=== PATIENT | female | born 1955 ===

== ENCOUNTER 2020-09-18 10:51 | Outpatient (NON) | payer MEDICARE, SELFPAY | END 2020-09-18 10:52 | disposition home or self-care (01) | PROVIDERS: PCP Nurse Practitioner Family; Visit Provider Nurse Practitioner | DX: L02.91 Cutaneous abscess, unspecified (principal) | CPT/HCPCS: 87070; 87075; 87147; 87181; 87186; 87205 ==

== ENCOUNTER 2021-05-07 15:39 | Emergency (ER) | payer MEDICARE, SELFPAY ==
[2021-05-07 15:40] VITALS: BP 131/78; PULSE 72; RESP 20; TEMP 37; O2SAT 98
--- NOTE | 2021-05-07 16:35 | ED.WOUNDLAC ---
HPI - Wound/Laceration General Chief Complaint: Wound/Laceration Stated Complaint: laceration left hand Time Seen by Provider: 05/07/21 16:35 Source: patient and family Mode of arrival: ambulatory Limitations: no limitations History of Present Illness HPI narrative: 66-year-old right-handed woman comes in today complaining of a laceration of her left hand that occurred while she was opening a plastic package with scissors. 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 She states that she has no numbness or tingling as normal range of motion of her fingers. Her tetanus is up-to-date. Onset (ago): minute(s) (30) Extremity Location: Left: hand Place: work Patient tetanus UTD: Yes Context: accidental Associated symptoms: pain Treatments prior to arrival: bandage Related Data Home Medications Medication Instructions Recorded Confirmed alprazolam 0.25 mg tablet 0.25 mg PO BID 09/17/20 amoxicillin PO 09/17/20 celecoxib 100 mg capsule 100 mg PO DAILY cap 09/17/20 Allergies Allergy/AdvReac Type Severity Reaction Status Date / Time No Known Allergies Allergy Unknown Verified 04/29/21 09:14 Review of Systems Constitutional: Constitutional: Denies chills and Denies fever(s) Respiratory: Respiratory: Denies cough and Denies dyspnea Gastrointestinal: Gastrointestinal: Denies abdominal pain, Denies nausea and Denies vomiting Musculoskeletal: Musculoskeletal: Denies arthralgias and Denies joint swelling Integumentary/Breasts: Skin/Breast: Denies pruritus, Denies erythema and Denies rash Neurologic: Denies focal weakness and Denies numbness Hematologic/Lymphatic: Hematologic/Lymphatic: Denies easy bleeding and Denies easy bruising PMFSH Past Medical History Medical History Acute arthritis History of stomach ulcers Surgical History Surgical History History of surgery on arm Family History Family History Father Family history of lung cancer Mother Family history of lung cancer Sibling Melanoma Social History Social History Smoking status: Never smoker Alcohol intake: current Substance use: never Exam Const: General: healthy appearing, no acute distress and alert Orientation/consciousness: patient oriented x3 Limitations: no limitations Skin: General skin exam: normal color, no jaundice and no pallor Rashes: no rashes Other: 1.5 cm laceration over the radial aspect of the left 2nd MCP. Neuro: General: patient oriented x3, moves all extremities, no focal motor deficits and CN's II-XI intact bilaterally Speech: normal speech Gait exam (Neuro): Normal gait present Extrem: General: normal to inspection and no clubbing, cyanosis or edema Psych: Appearance: grossly normal Mental Status: mental status grossly normal Affect: normal affect Procedures Laceration Laceration 1: Date: 05/07/21 Time: 16:45 Site: hand Side (If applicable): left Size (cm): 1.5 Description: linear Depth: simple, single layer Local Anesthetic: lidocaine 1% Amount of anesthesia used (mL): 2 Pre-repair: wound explored and irrigated extensively ====== Skin Level ====== Skin layer closed with: nylon Size (cm): 5-0 Number of sutures: 5 Technique: simple, interrupted ====== Subcutaneous Layer ====== ====== Muscle Layer ====== ====== Tendon Layer ====== Discharge Plan Discharge Clinical Impression: Hand laceration Qualifiers: Encounter type: initial encounter Foreign body presence: without foreign body Laterality: left Qualified Code(s): S61.412A - Laceration without foreign body of left hand, initial encounter Patient Disposition: Home, Self-Care Condition: Stable Inst
[2021-05-07 17:00] VITALS: BP 131/78; PULSE 72; RESP 20; TEMP 37; O2SAT 98
== END 2021-05-07 17:15 | disposition home or self-care (01) ==
PROVIDERS: Emergency Provider Emergency Medicine; PCP Nurse Practitioner Family
DX: S61.412A Laceration without foreign body of left hand, initial encounter (principal); W26.8XXA Contact with other sharp object(s), not elsewhere classified, initial encounter
CPT/HCPCS: 12001; 99282

== ENCOUNTER 2022-10-27 09:33 | Outpatient (CLI) | payer MEDICARE, SELFPAY ==
--- NOTE | ~2022-10-27 | DEXA_ITS ---
Bone Density Report Name: BELTRAN CLAIRE Age: 67 Sex: Female Ethnicity: White Date of : 1955 Indication: postmenopausal; screening for osteoporosis; Referring Provider: REMI, CRISTOBAL Jeffrey Study: Bone densitometry was performed. Exam Date: October 27, 2022 Accession number: [id number] Bone Density: Region BMD T-score Z-score Classification AP Spine(L1-L4) 1.186 1.3 3.3 Normal Femoral Neck (Left) 0.540 -2.8 -1.0 Osteoporosis Total Hip (Left) 0.615 -2.7 -1.2 Osteoporosis Femoral Neck (Right) 0.551 -2.7 -0.9 Osteoporosis Total Hip (Right) 0.583 -2.9 -1.5 Osteoporosis Femoral Neck Mean 0.546 -2.7 -1.0 Osteoporosis Total Hip Mean 0.599 -2.8 -1.3 Osteoporosis World Health Organization criteria for BMD impression classify patients as: Normal (T-score at or above -1.0), Osteopenia (T-score between -1.0 and -2.5), or Osteoporosis (T-score at or below -2.5). Clinical Information Provided by Patient: Has used the following medications: Vitamin D, Calcium Patient maximum height was 60 No regular weight bearing exercise Does not regularly consume dairy products Drinks caffeinated beverages Onset of menses at age 11 Number of children 2 Impression: The patient has osteoporosis, based on the Right Total Hip T-score. Discussion: INCREASED RISK OF FRACTURE. BONE DENSITY IS UNDESIRABLY LOW AT ONE OR MORE SKELETAL SITES, CONSISTENT WITH POSTMENOPAUSAL OSTEOPOROSIS. This patient's lowest T-score meets the World Health Organization's (WHO) criteria for osteoporosis at one or more sites (T-score -2.5 or below). In untreated patients, the risk of osteoporotic fracture increases approximately two-fold for each 1.0 SD decrease in T-score. Low bone density is not the only risk factor for fracture; also consider factors such as patient's age, frailty or poor health, risk of falling, risk of injury, previous osteoporotic fracture, family history of osteoporosis, cigarette smoking, low body weight, etc. Not everyone with low bone mineral density has osteoporosis; osteomalacia and other metabolic bone disorders should also be considered. Patients who have osteoporosis should be evaluated for specific diseases and conditions (secondary causes) that may cause or contribute to bone loss. The [place] [employer]ocr[employer] (AACE) and National Osteoporosis Foundation (NOF) recommend pharmacologic intervention for all postmenopausal women whose T-score is in this range. The patient should follow a healthful lifestyle (good nutrition with adequate calcium and vitamin D, and appropriate weight-bearing exercise). Follow-Up: Consider a repeat BMD and Vertebral Fracture Assessment (VFA) exam in 2 years or sooner if medically necessary, to reassess this patient's status. Reported by: Dr. Manish Flores on 10/27/2022 10:10:00 AM. Reviewed, dictated and finalized at location A. LUIS FERNANDO
== END 2022-10-27 09:34 | disposition home or self-care (01) ==
LOC: CHSIMG 09:39
PROVIDERS: PCP Family Medicine; Visit Provider Family Medicine
DX: Z78.0 Asymptomatic menopausal state (principal); M81.0 Age-related osteoporosis without current pathological fracture
CPT/HCPCS: 77080

== ENCOUNTER 2023-03-20 01:38 | Day surgery (SDC) | payer MEDICARE, SELFPAY ==
[2023-03-08 13:39] VITALS: BMI 28.4
--- NOTE | 2023-03-17 10:35 | SUR.PREOP ---
Patient called regarding upcoming procedure. Reviewed preop instructions, appointment times, and procedure prep.
[2023-03-20 09:00] VITALS: BP 135/76; PULSE 78; RESP 20; TEMP 36.2; O2SAT 98; BMI 29.0
[2023-03-20] MEDS: LACTATED RINGERS 1,000 ML 150 ML IV CONT (09:19)
--- NOTE | 2023-03-20 09:21 | P.PNAN_ITS ---
Anes - Initial Pre Proc Eval Procedure: Operation Date: 03/20/23 10:30 Proposed Procedures p Screening Colonoscopy - Jad Garrison MD Date/Time: 03/20/23 09:21 Surgeon: Jad Garrison MD Pre Op Diagnosis: neoplasm screening Patient Data Age: 68 Gender: F Height: 1.52 m Weight: 67.4 kg Last Vital Signs Temp 97.1 F L 03/20/23 09:00 Pulse 78 03/20/23 09:00 Resp 20 03/20/23 09:00 BP 135/76 03/20/23 09:00 Pulse Ox 98 03/20/23 09:00 O2 Del Method Room Air 03/20/23 09:00 Allergies Allergy/AdvReac Type Severity Reaction Status Date / Time No Known Allergies Allergy Unknown Verified 03/20/23 08:59 Home Medications Medication Instructions Recorded Confirmed Type alprazolam 0.25 mg tablet 0.25 mg PO BID 09/17/20 03/20/23 History celecoxib 100 mg capsule 100 mg PO DAILY 09/17/20 03/20/23 History alendronate 70 mg tablet 70 mg PO WEEKLY 03/08/23 03/20/23 History rosuvastatin 10 mg tablet 10 mg PO DAILY 03/08/23 03/20/23 History sertraline 25 mg tablet 25 mg PO DAILY 03/08/23 03/20/23 History Patient hx anesthesia problems: none Family hx anesthesia problems: none Results Review: All pre-operative results and documents have been reviewed as part of the pre- operative evaluation. [facility] Past Medical History Medical History Acute arthritis History of stomach ulcers Surgical History Surgical History History of surgery on arm Family History Family History Father Family history of lung cancer Mother Family history of lung cancer Sibling Melanoma Social History Social History Smoking status: Never smoker Alcohol intake: current Alcohol use details: seldom Substance use: never Substance use type: does not use Living arrangements: alone Spiritual care concerns: No Anes - Eval Final PreProcedure Day of Procedure 03/20/23 09:21 Patient weight: obese Heart: regular rate and rhythm Lungs: clear to auscultation Airway: Mallampati scale class II Neurological: alert and oriented Last oral intake: >/= 8 hours ASA classification: II Emergent: no Anesthetic plan: proceed Anesthesia type and monitoring: general GIVS and standard monitoring Results Review: All pre-operative results and documents have been reviewed as part of the pre- operative evaluation. Informed Consent: The patient's anesthetic plan and its attendant risks and benefits were discussed with the patient/family/POA. Questions were solicited and answers provided to the satisfaction of the patient/family/POA.
--- NOTE | 2023-03-20 09:27 | PM.HPGS ---
History of Present Illness History of Present Illness Consent: Risks, benefits, and alternatives have been discussed and questions answered. Patient agrees to proceed with procedure. Chief complaint: neoplasm screening Narrative: Loretta Bobo is a 68 year old female here for first screening colonoscopy Review of Systems Constitutional: Constitutional: Denies headache(s) and Denies weakness Eyes: Eyes: Denies blurry vision ENT: Reports Normal hearing present, Denies headache(s) and Denies neck pain Cardiovascular: Cardiovascular: Denies chest pain and Denies dyspnea Respiratory: Respiratory: Denies dyspnea Gastrointestinal: Gastrointestinal: Reports no additional gastrointestinal complaints Genitourinary: Genitourinary: Denies dysuria Musculoskeletal: Musculoskeletal: Denies neck pain Integumentary/Breasts: Skin/Breast: Denies dry skin Neurologic: Reports Normal hearing present, Denies headache(s) and Denies weakness Psychiatric: Psychiatric: Denies anxiety Endocrine: Endocrine: Denies change in body appearance Hematologic/Lymphatic: Hematologic/Lymphatic: Denies easy bleeding Allergic/Immunologic: Allergic/Immunologic: Denies urticaria [facility] Past Medical History Medical History (Updated 03/20/23 @ 09:28 by Jad Garrison MD) Acute arthritis Colon cancer screening History of stomach ulcers Surgical History Surgical History History of surgery on arm Family History Family History Father Family history of lung cancer Mother Family history of lung cancer Sibling Melanoma Social History Social History Smoking status: Never smoker Alcohol intake: current Alcohol use details: seldom Substance use: never Substance use type: does not use Living arrangements: alone Spiritual care concerns: No Meds Home Medications and Allergies Home Medications Medication Instructions Recorded Confirmed Type alprazolam 0.25 mg tablet 0.25 mg PO BID 09/17/20 03/20/23 History celecoxib 100 mg capsule 100 mg PO DAILY 09/17/20 03/20/23 History alendronate 70 mg tablet 70 mg PO WEEKLY 03/08/23 03/20/23 History rosuvastatin 10 mg tablet 10 mg PO DAILY 03/08/23 03/20/23 History sertraline 25 mg tablet 25 mg PO DAILY 03/08/23 03/20/23 History Allergies Allergy/AdvReac Type Severity Reaction Status Date / Time No Known Allergies Allergy Unknown Verified 03/20/23 08:59 Vital Signs Vital Signs - 24 hr 03/20/23 09:00 Temperature 97.1 F L Pulse Rate 78 Respiratory Rate 20 Blood Pressure 135/76 Pulse Oximetry 98 Oxygen Delivery Room Air Exam Const: General: comfortable and no acute distress HENMT: Face/Nose/Sinus: Normal nares present Eyes: General: appearance normal, both eyes and all related structures Neck: Neck: no JVD Resp: Auscultation: clear to auscultation bilaterally Cardio: Rate: regular rate Rhythm: regular rhythm GI: Inspection: non-distended GI Palp: Yes Soft to palpation Skin: General skin exam: normal color Neuro: General: gait normal Speech: normal speech Extrem: General: normal to inspection Psych: Mental Status: mental status grossly normal Assessment and Plan Assessment and plan (1) Colon cancer screening: Code(s): Z12.11 - Encounter for screening for malignant neoplasm of colon Status: Acute Assessment and Plan: colonoscopy
[2023-03-20 09:48] VITALS: BP 114/63; PULSE 81; RESP 24; O2SAT 98
[2023-03-20 09:58] VITALS: BP 120/78; PULSE 68; RESP 18; O2SAT 100
[2023-03-20 10:08] VITALS: BP 126/70; PULSE 69; RESP 18; O2SAT 100
== END 2023-03-20 10:15 | disposition home or self-care (01) ==
PROVIDERS: PCP Family Medicine; Visit Provider Internal Medicine Gastroenterology
PROC: 0DJD8ZZ Inspection of Lower Intestinal Tract, Via Natural or Artificial Opening Endoscopic (ICD-10-PCS; CPT 45378; principal; 2023-03-20 10:30)
DX: Z12.11 Encounter for screening for malignant neoplasm of colon (principal); K57.30 Diverticulosis of large intestine without perforation or abscess without bleeding; K64.8 Other hemorrhoids; E66.9 Obesity, unspecified; Z68.29 Body mass index [BMI] 29.0-29.9, adult
CPT/HCPCS: G0121; J2704; J7120

== ENCOUNTER 2023-05-04 17:11 | Outpatient (NON) | payer MEDICARE, SELFPAY | END 2023-05-04 17:12 | disposition home or self-care (01) | LOC: ANHLAB 17:13 | PROVIDERS: PCP Family Medicine; Visit Provider Nurse Practitioner | DX: D48.5 Neoplasm of uncertain behavior of skin (principal) | CPT/HCPCS: 88305 ==

== ENCOUNTER 2025-01-07 12:38 | Outpatient (CLI) | payer MEDICARE, SELFPAY ==
--- NOTE | ~2025-01-07 | DEXA_ITS ---
Bone Density Report Name: BELTRAN CLAIRE Age: 69 Sex: Female Ethnicity: White Date of : 1955 Indication: postmenopausal osteoporosis; monitoring treatment; secondary osteoporosis; Referring Provider: REMI, CRISTOBAL Jeffrey Study: Bone densitometry was performed. Exam Date: January 07, 2025 Accession number: [id number] Bone Density: Region BMD T-score Z-score Classification AP Spine(L1-L4) 1.336 2.6 4.8 Normal Femoral Neck (Left) 0.589 -2.3 -0.4 Osteopenia Total Hip (Left) 0.734 -1.7 -0.1 Osteopenia Femoral Neck (Right) 0.723 -1.1 0.8 Osteopenia Total Hip (Right) 0.772 -1.4 0.2 Osteopenia Femoral Neck Mean 0.656 -1.7 0.2 Osteopenia Total Hip Mean 0.753 -1.5 0.1 Osteopenia World Health Organization criteria for BMD impression classify patients as: Normal (T-score at or above -1.0), Osteopenia (T-score between -1.0 and -2.5), or Osteoporosis (T-score at or below -2.5). Previous Exams: Region Exam Age BMD T-score BMD Change BMD Change Date g/cm2 vs Baseline vs Previous AP Spine (L1-L4) 01/07/2025 69 1.336 2.6 0.150 (12.7%)* 0.150 (12.7%)* 10/27/2022 67 1.186 1.3 Total Hip(Left) 01/07/2025 69 0.734 -1.7 0.119 (19.3%)* 0.119 (19.3%)* 10/27/2022 67 0.615 -2.7 Total Hip(Right) 01/07/2025 69 0.772 -1.4 0.189 (32.4%)* 0.189 (32.4%)* 10/27/2022 67 0.583 -2.9 *Denotes significance at 95% confidence level, LSC for AP Spine = 0.022 g/cm2, LSC for Total Hip = 0.027 g/cm2 Clinical Information Provided by Patient: Has secondary osteoporosis Is being treated for osteoporosis Has used the following medications: Fosamax (i.e. alendronate), Vitamin D Patient maximum height was 6.0 Menopause Age: 48 No regular weight bearing exercise Does not regularly consume dairy products Drinks caffeinated beverages Onset of menses at age 13 Number of children 2 Impression: The patient has low bone mass, based on the Left Femoral Neck T-score. No significant bone loss was observed. Discussion: PATIENT UNDER TREATMENT WITH NO SIGNIFICANT BMD LOSS SINCE LAST EXAM. In an untreated patient, BMD typically declines with age. A lack of decline or gain is usually a sign that treatment is efficacious and fracture risk is reduced. It is important to ask patients whether they are taking their medications and to encourage continued and appropriate compliance with their osteoporosis therapies to reduce fracture risk. It is also important to review their risk factors and encourage appropriate calcium and vitamin D intakes, exercise, fall prevention and other lifestyle measures. Follow-Up: Consider a repeat BMD and Vertebral Fracture Assessment (VFA) exam in 2 years or sooner if medically necessary, to reassess this patient's status. Reported by: UMU on 01/07/2025 1:20:00 PM. Reviewed, dictated and finalized at location A.
--- OUTSIDE RECORDS SUMMARY | 2025-01-07 12:44 | XMS_ITS | Clinical Summary ---
Author Organization [address] Address [address] [place] [id number] Care Team Providers [facility] [employer] Name Role Phone Gabo Donis MD Primary Care Provider [phone] Melanie Manuel MD Unavailable [phone] Allergies No known active allergies Medications sertraline (ZOLOFT) 25 mg tabletIndicati ons:Generalize d Anxiety Disorder TAKE 1 TABLET (25 MG TOTAL) BY MOUTH DAILY. 90 tablet 3 02/20/20 24 025 Active alendronate (FOSAMAX) 70 mg tablet TAKE 1 TABLET BY MOUTH EVERY 7 DAYS IN THE MORNING WITH A FULL GLASS OF WATER, ON AN EMPTY STOMACH, AND DO NOT TAKE ANYTHING ELSE BY MOUTH OR LIE DOWN FOR THE NEXT 30 MIN. 12 tablet 3 11/19/19 25 Active rosuvastatin (CRESTOR) 10 mg tablet TAKE 1 TABLET BY MOUTH EVERY DAY 90 tablet 1 12/26/19 25 Active ALPRAZolam (XANAX) 0.5 mg tabletIndicati ons:anxiety Take 1 tablet (0.5 mg total) by mouth 3 (three) times a day as needed for anxiety 30 tablet 1 01/04/20 25 025 Active rosuvastatin (CRESTOR) 10 mg tablet TAKE 1 TABLET BY MOUTH EVERY DAY 90 tablet 1 07/01/19 25 025 Discontinued ALPRAZolam (XANAX) 0.5 mg tabletIndicati ons:anxiety Take 1 tablet (0.5 mg total) by mouth 3 (three) times a day as needed for anxiety 30 tablet 1 11/09/19 25 025 Discontinued(Re order) Active Problems Problem Noted Date Diagnosed Date Class 1 obesity due to exces s calories without serious comorbidity with body mass index (BMI) of 30.0 to 30.9 in adult 07/11/2024 Assessment & Plan (07/11/2024 10:25 AM 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 Mixed hyperlipidemia 07/03/2023 Vitamin D deficiency 07/03/2023 Traumatic closed displaced f racture of base of metacarpal bone of right thumb 06/29/2023 Age-related osteoporosis wit hout current pathological fracture 01/14/2023 Encounter for annual wellnes s visit (AWV) in Medicare patient 12/27/2022 Assessment & Plan (01/05/2024 8:52 AM CDT): A(n) yearly Medicare Annual Wellness Visit has been performed today. Loretta Bobo is not up to date on screening tests. She is in need of hepatitis B screening . She is up to date on needed preventative vaccinations. We discussed healthy lifestyle habits, educational material has been given. Medications reviewed, changes documented as per the medical record and discussed with patient along with risks vs benefits. Specific topics reviewed: drugs, ETOH, and tobacco, importance of regular dental care, importance of regular exercise, importance of varied diet, limit TV, media violence, minimize junk food, and seat belts. Return in 6 months Assessment & Plan (12/27/2022 1:07 PM CDT): A(n) yearly Medicare Annual Wellness Visit has been performed today. Loretta Bobo is not up to date on screening tests. She is in need of DEXA, Breast cancer screening, and Colon cancer screening. She is not up to date on needed preventative vaccinations; She is in need of Zoster and Covid-19 (booster). We discussed healthy lifestyle habits, educational material has been given. Medications reviewed, changes documented as per the medical record and discussed with patient along with risks vs benefits. Return in 6 months Immunization due 08/12/2021 Assessment & Plan (08/12/2021 5:41 PM CDT): Immunizations that are due were reviewed TDAP,Shingles shot, Blister of nose with infection 06/23/2021 Laceration of finger without foreign body, initial encounter 05/15/2021 Overview (05/15/2021): Sutures in place, no problems noted at this time. Stitches to come out in 2 weeks. Continue to monitor wound for signs of infection. Continue with wound care. Note needs TDAP As soon as possible. 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 Keep wound dry, as much as possible. Fatigue associated with anemia 05/15/2021 Overview (05/15/2021): Note history of anemia, Lab to be done today, CBC, CMP, TSH, B12, Vit D, Encouraged balanced diet. Adequate fluids. Adequate sleep of good quality. Chronic ulcer of gastric fundus 05/15/2021 Overview (05/15/2021): Continue to monitor gastric ulcer. Contnue with medication as ordered. Eat balanced diet, avoid foods that cause her gastric distress Lab today.. Acute bilateral knee pain 05/15/2021 Overview (05/15/2021): Xray of bilateral knees today Celebrex 100mg on bid with food. Talked about getting injections into knees. Also talked about using topical pain meds OTC Continue with exercises to keep quad muscles stronger. Watch posture with knees and thing to help her keep legs in good alignment. Assessment & Plan (08/12/2021 5:07 PM CDT): Doing well with Celebrex 100mg bid with food. Continue with knee exercises , not they have helped with legs and knees feeling better. 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 Anxiety 05/15/2021 Overview (05/15/2021): Zoloft 25mg one daily [o Xanax 0.5 mg one bid PRN Work on stress. Establish some me time. Possible counseling if needed. Assessment & Plan (08/12/2021 5:04 PM CDT): Continue with Xanax 0.5mg bid PRN Cut back on working hours to 5 days a week, Take a vacation. Start an exercise program and weight loss. Encounters Date Type Department Care Team Description 12/02/2024 Telephone [facility] Primary Care at [address] [id number] Gabo Donis MD Medical Question/Miscellaneous from Last 3 Months Immunizations Immunization Administration Dates Next Due Influenza, Quadrivalent, Hig h Dose, Preservative Free, Intrr 03/14/2022,05/13/2021 Influenza, Trivalent, High D ose, Split, Preservative Free, Intramuscular 07/11/2024 Influenza, Unspecified 05/15/2023(Deferr ed: Patient Refused),05/15/2022(Deferred: Patient Refused),03/29/2020(Deferred: Patient Refused) Pneumococcal Conjugate Pcv20 06/28/2022 Tdap 05/23/2021 Surgical History Surgery Date Site/Laterality Comments ARM SURGERY LAPAROSCOPIC GASTROTOMY W/ REPAIR OF ULCER Medical History Medical History Date Comments Anxiety Hyperlipidemia Depression Age-related osteoporosis without current patholo gical fracture 01/14/2023 Family History Medical History Relation Name Comments Lung cancer Father Lung cancer Mother Relation Name Status Comments Brother Alive Father Mother Sister 1 Alive Sister 2 Alive Sister 3 Alive Sister 4 Alive Social History Tobacco Use Types Packs/Day Years Used Date Smoking Tobacco: Never Smokeless Tobacco: Never AUDIT-C Answer Date Recorded Q1: How often do you have a drink containing alc ohol? Monthly or less 12/27/2022 Q2: How many drinks containi ng alcohol do you have on a typical day when you are drinking? 1 or 2 12/27/2022 Q3: How often do you have si x or more drinks on one occasion? 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 Not on file Not on file Obstetrics History Last Filed Vital Signs Vital Sign Reading Time Taken Comments Blood Pressure 130/84 07/11/2024 10:04 AM BLOOD BANK BOOKING CLERK Pulse 78 07/11/2024 10:04 AM BLOOD BANK BOOKING CLERK Temperature 36.1 C (96.9 F) 07/11/2024 10:04 AM BLOOD BANK BOOKING CLERK Respiratory Rate 16 07/11/2024 10:04 AM BLOOD BANK BOOKING CLERK Oxygen Saturation 98% 07/11/2024 10:04 AM BLOOD BANK BOOKING CLERK Inhaled Oxygen Concentration - - Weight 71.2 kg (157 lb) 07/11/2024 10:04 AM BLOOD BANK BOOKING CLERK Height 152.4 cm (5') 07/11/2024 10:04 AM BLOOD BANK BOOKING CLERK Body Mass Index 30.66 07/11/2024 10:04 AM BLOOD BANK BOOKING CLERK Plan of Treatment Health Maintenance Due Date Last Done Comments Hepatitis B Screening 1973 Zoster Vaccine (1 of 2) 2003 Covid-19 Vaccine ( season) 2024 01/02/2021, 12/12/2020 Osteoporosis Screening-Bone Density Scan 10/27/2024 10/27/2022 Fall Risk Assessment 01/04/2025 01/05/2024, 07/03/2023, 12/27/2022, Additional history exists Well Visit 65+ 01/04/2025 01/05/2024, 12/27/2022 Influenza Vaccine (#1) 2025 , 03/14/2022, 05/13/2021 Breast Cancer Screening-Mammogram 04/17/2025 Postponed from 1955 (Patient declined, but will receive in the future) Depression Screening 07/11/2025 07/11/2024, 01/05/2024, 07/03/2023, Additional history exists DTaP/Tdap/Td Vaccine (2 - Td or Tdap) 05/23/2031 05/23/2021 Colon Cancer Screening-Colonoscopy 03/20/2033 03/20/2023 Hepatitis C Screening Completed 08/20/2021 Pneumococcal vaccine 65+ Completed 06/28/2022 Procedures Procedure Name Priority Date/Time Associated Diagnosis Comments THYROID FUNCTION CASCADE Routine 01/03/2025 8:46 AM CDT Anxiety VITAMIN D 25 HYDROXY Routine 01/03/2025 8:46 AM CDT Vitamin D deficiency Age-related osteoporosis without current pathological fracture LIPID PANEL Routine 01/03/2025 8:46 AM CDT Mixed hyperlipidemia COMPREHENSIVE METABOLIC PANEL Routine 01/03/2025 8:46 AM CDT Mixed hyperlipidemia CBC WITH AUTO DIFFERENTIAL Routine 01/03/2025 8:46 AM CDT Mixed hyperlipidemia HM COLONOSCOPY Routine 03/20/2023 HM DEXA SCAN Routine 10/27/2022 HEPATITIS C ANTIBODY Routine 08/20/2021 10:40 AM CDT Encounter for hepatitis C screening test for low risk patient from Last 3 Months or Most Recently Relevant to Health Maintenance Results * Thyroid Function [place] (01/03/2025 8:46 AM CDT) TSH 1.52 0.40 - 4.50 mIU/L [facility] Blood 01/03/2025 8:46 AM CDT 01/04/2025 4:23 AM CDT Narrative [facility] - 01/04/2025 8:33 AM CDT FASTING:YES FASTING: YES us Gabo Donis MD LAB BLOOD ORDERABLES Final Result [facility] [address] [place] [address] * (ABNORMAL) CBC with auto differential (01/03/2025 8:46 AM CDT) WBC 7.1 3.8 - 10.8 Thousand/u L [facility] RBC, POC 5.18(H) 3.80 - 5.10 Million/uL [facility] Hgb 14.5 11.7 - 15.5 g/dL [facility] Hct 45.1(H) 35.0 - 45.0 % [facility] MCV 87.1 80.0 - 100.0 fL [facility] MCH 28.0 27.0 - 33.0 pg [facility] MCHC 32.2 32.0 - 36.0 g/dL [facility] Comment: For adults, a slight decrease in the calculated MCHC value (in the range of 30 to 32 g/dL) is most likely not clinically significant; however, it should be interpreted with caution in correlation with other red cell parameters and the patient's clinical condition. Rdw 13.5 11.0 - 15.0 % [facility] Platelets 313 140 - 400 Thousand/u L [facility] MPV 10.2 7.5 - 12.5 fL [facility] Neutrophils, abs 4,445 1,500 - 7,800 cells/uL [facility] Lymphocytes, abs 1,761 850 - 3,900 cells/uL [facility] Monocyte abs 554 200 - 950 cells/uL [facility] Eosinophils, abs 270 15 - 500 cells/uL [facility] Basophils, abs 71 0 - 200 cells/uL [facility] Neutrophils 62.6 % [facility] Lymphocyte pct 24.8 % [facility] Monocytes 7.8 % [facility] Eosinophils 3.8 % [facility] Basophils 1.0 % [facility] Blood 01/03/2025 8:46 AM CDT 01/04/2025 4:23 AM CDT Narrative [facility] - 01/04/2025 8:33 AM CDT FASTING:YES FASTING: YES us Gabo Donis MD LAB BLOOD ORDERABLES Final Result [facility] [address] [place] [address] * Vitamin D 25 hydroxy (01/03/2025 8:46 AM CDT) Pathologist [facility] Vitamin D 25-OH 62 30 - 100 ng/mL [facility] Comment: Vitamin D Status 25-OH Vitamin D: Deficiency: <20 ng/mL Insufficiency: 20 - 29 ng/mL Optimal: > or = 30 ng/mL For 25-OH Vitamin D testing on patients on D2-supplementation and patients for whom quantitation of D2 and D3 fractions is required, the QuestAssureD(TM) 25-OH VIT D, (D2,D3), LC/MS/MS is recommended: order code 15608 (patients >2yrs). See Note 1 Note 1 For additional information, please refer to http://Sunfun Info.Orca Digital/faq/DWB385 (This link is being provided for informational/ educational purposes only.) Blood 01/03/2025 8:46 AM CDT 01/04/2025 4:23 AM CDT Narrative [facility] - 01/04/2025 8:33 AM CDT FASTING:YES FASTING: YES Gabo Donis MD LAB BLOOD ORDERABLES Final Result [facility] [address] [place] [address] * Lipid panel (01/03/2025 8:46 AM CDT) Cholesterol 138 <200 mg/dL [facility] HDL 52 > OR = 50 mg/dL [facility] Triglycerides 95 <150 mg/dL [facility] LDL 68 mg/dL (calc) [facility] Comment: Reference range: <100 Desirable range <100 mg/dL for primary prevention; <70 mg/dL for patients with CHD or diabetic patients with > or = 2 CHD risk factors. LDL-C is now calculated using the Terence-Eliz calculation, which is a validated novel method providing better accuracy than the Friedewald equation in the estimation of LDL-C. Terence RIVERA et al. ELSA. 2013;310(19): 7605-3712 (http://education.DealCloud.Misohoni/faq/KTS255) Chol/HDL ratio 2.7 <5.0 (calc) [facility] Non-HDL, (LDL+VLDL) 86 <130 mg/dL (calc) [facility] Comment: For patients with diabetes plus 1 major ASCVD risk factor, treating to a non-HDL-C goal of <100 mg/dL (LDL-C of <70 mg/dL) is considered a therapeutic option. Blood 01/03/2025 8:46 AM CDT 01/04/2025 4:23 AM CDT Narrative [facility] - 01/04/2025 8:33 AM CDT FASTING:YES FASTING: YES us Gabo Donis MD LAB BLOOD ORDERABLES Final Result [facility] [address] [place] [address] * Comprehensive metabolic panel (01/03/2025 8:46 AM CDT) Pathologist [facility] Glucose 88 65 - 99 mg/dL [facility] Comment: Fasting reference interval BUN 10 7 - 25 mg/dL [facility] Creatinine 0.60 0.60 - 1.00 mg/dL [facility] eGFR 96 > OR = 60 mL/min/1.7 3m2 [facility] BUN/creat ratio SEE NOTE: (calc) [facility] Comment: Not Reported: BUN and Creatinine are within reference range. Sodium 141 135 - 146 mmol/L [facility] Potassium, pl 4.3 3.5 - 5.3 mmol/L [facility] Chloride 107 98 - 110 mmol/L [facility] CO2 29 20 - 32 mmol/L [facility] Calcium 9.4 8.6 - 10.4 mg/dL [facility] Protein, sr 6.8 6.1 - 8.1 g/dL [facility] Albumin 4.1 3.6 - 5.1 g/dL [facility] GLOBULIN 2.7 1.9 - 3.7 g/dL (calc) [facility] Alb/glob ratio 1.5 1.0 - 2.5 (calc) [facility] Bilirubin, total 0.5 0.2 - 1.2 mg/dL [facility] Alk phos 38 37 - 153 U/L [facility] AST 18 10 - 35 U/L [facility] ALT (SGPT) 13 6 - 29 U/L [facility] Blood 01/03/2025 8:46 AM CDT 01/04/2025 4:23 AM CDT Narrative [facility] - 01/04/2025 8:33 AM CDT FASTING:YES FASTING: YES Gabo Donis MD LAB BLOOD ORDERABLES Final Result [facility] [address] [place] [address] * COLONOSCOPY (03/20/2023) Historical Provider HEALTH MAINTENANCE Final Result * DEXA SCAN (10/27/2022) Historical Provider HEALTH MAINTENANCE Final Result * Hepatitis C antibody (08/20/2021 10:40 AM CDT) Hep C Ab NON-REACTI VE NON-REACT BRENDON [facility] SIGNAL TO CUT-OFF 0.03 <1.00 [facility] Comment: HCV antibody was non-reactive. There is no laboratory evidence of HCV infection. In most cases, no further action is required. However, if recent HCV exposure is suspected, a test for HCV RNA (test code 34155) is suggested. For additional information please refer to http://education.PostedIn/faq/HFY22z8 (This link is being provided for informational/ educational purposes only.) Blood specimen (specimen) 08/20/2021 10:40 AM CDT 08/21/2021 9:34 AM CDT Narrative [facility] - 08/23/2021 1:11 PM CDT FASTING:YES FASTING: YES us Tereso Ramsay MEDICAL LOGISTICS SPECIALIST LAB MICROBIOLOGY - GENERAL ORDER YAKELIN Final Result [facility] [address] [place] [phone] from Last 3 Months or Most Recently Relevant to Health Maintenance Insurance MEDICARE [email or web address] GENERIC MEDICARE PR[employer] MEDICARE SUPPLEMENT MEDICARE COMMERCIAL GENERIC Care Teams [employer] Relationship Specialty Start Date End Date Gabo Donis MD [address] [place] [address] PCP - General Family Medicine 10/12/21 Melanie Manuel MD [phone] [place] [address] Consulting Physician Plastic Surgery 01/05/24
== END 2025-01-07 12:39 | disposition home or self-care (01) ==
LOC: CHSIMG 12:41
PROVIDERS: PCP Family Medicine; Visit Provider Family Medicine
DX: Z78.0 Asymptomatic menopausal state (principal); M85.89 Other specified disorders of bone density and structure, multiple sites
CPT/HCPCS: 77080